=== PATIENT | male | born 1960 | race African-American/Black ===

== ENCOUNTER 2017-06-25 15:27 | Inpatient (IN) | payer OTHER, MEDICAID ==
[~2017-06-25] VITALS: Ht 182.9 cm; Wt 99.3 kg
[2017-06-25 16:05] LABS: BASOPHILS % 0.4 % (0.0-2.0); EOSINOPHILS % 0.4 % (0.0-5.0); HEMATOCRIT. 52.8 % (42.0-52.0); HEMOGLOBIN. 17.5 g/dL (14.0-18.0); LYMPHOCYTES % 10.8 % (20.0-50.0); MEAN CORPUSCULAR HEMOGLOBIN 29.4 pg (28.0-32.0); MEAN CORPUSCULAR VOLUME 88.4 fL (80.0-94.0); MEAN PLATELET VOLUME 10.6 fl (7.4-10.4); NEUTROPHILS % 85.4 % (40.0-76.0); PLATELET 212 x1000/uL (130-400); RED BLOOD CELL COUNT 5.97 mill/uL (4.7-6.1); RED CELL DISTRIBUTION WIDTH 14.3 % (11.6-14.6)
[2017-06-25 16:09] LABS: INR 1.1; PROTHROMBIN TIME 11.3 sec (9.4-11.6)
[2017-06-25 16:24] LABS: CARBON DIOXIDE 29 mEq/L (21-32); CHLORIDE 106 mEq/L (98-107)
[2017-06-25 16:25] LABS: TROPONIN I 0.88 ng/mL (0.00-0.04)
[2017-06-25] MEDS ORDERED: LABETALOL HCL 20MG/4ML CARPUJECT IV PRN (17:00)
[2017-06-25] MEDS ORDERED: NITROGLYCERIN 0.2MG/HR PATCH TOP ONE (17:30)
[2017-06-25] MEDS: LABETALOL 5MG/ML SYR 20 MG/4 ML SYRINGE IV PRN ×2 (18:01→18:52)
[2017-06-25] MEDS ORDERED: LABETALOL 5MG/ML SYR 20 MG/4 ML SYRINGE IV PRN ×2 (18:19→18:45)
[2017-06-25] MEDS ORDERED: ACETAMINOPHEN 325MG TABLET PO PRN (22:00)
[2017-06-25] MEDS ORDERED: CLONIDINE 0.1MG TABLET PO PRN (22:00)
[2017-06-25] MEDS ORDERED: MAGNESIUM/ALUMINUM HYDROXIDE/SIMETHICONE 30ML UDC PO PRN (22:00)
[2017-06-25] MEDS ORDERED: GUAIFENESIN 200MG/10ML SUGAR FREE UDC PO PRN (22:00)
[2017-06-25] MEDS ORDERED: ACETAMINOPHEN 650MG SUPP PR PRN (22:00)
[2017-06-25] MEDS ORDERED: ONDANSETRON HCL 4MG/2ML VIAL IV PRN (22:00)
[2017-06-25] MEDS ORDERED: DOCUSATE SODIUM 100MG CAPSULE PO PRN (22:00)
[2017-06-25] MEDS ORDERED: ACETAMINOPHEN 650MG/20.3ML UDC GT PRN (22:00)
[2017-06-25] MEDS ORDERED: IPRATROPIUM/ALBUTEROL 0.5-3(2.5)MG/3ML NEB INH PRN (22:00)
[2017-06-25] MEDS ORDERED: DIPHENHYDRAMINE 50MG/ML VIAL IV PRN (22:00)
[2017-06-25] MEDS ORDERED: HYDRALAZINE 20MG/ML VIAL IV PRN (22:15)
[2017-06-25] MEDS ORDERED: MORPHINE SULFATE 4 MG/ML CPJ (NOT FOR IM USE) IV PRN (22:30)
[2017-06-25] MEDS ORDERED: CLONIDINE HCL 0.1MG/24HR PATCH TD NR (23:00)
[2017-06-25] MEDS ORDERED: NA PHOS,M-B/NA PHOS,DI-BA ENEMA 118ML PR PRN (23:00)
[2017-06-25 23:09] LABS: CLARITY URINE CLEAR (CLEAR); COLOR URINE YELLOW (YELLOW); KETONES URINE TRACE (NEGATIVE); LEUKOCYTE ESTERASE URINE NEGATIVE (NEGATIVE); NITRITE URINE NEGATIVE (NEGATIVE); OCCULT BLOOD URINE TRACE (NEGATIVE); PROTEIN URINE 2+ (NEGATIVE); SPECIFIC GRAVITY URINE 1.029 (1.005-1.030)
[2017-06-25 23:23] LABS: *AMPHETAMINES SCREEN URINE NEGATIVE (NEGATIVE); *BARBITURATES SCREEN URINE NEGATIVE (NEGATIVE); *BENZODIAZEPINES SCREEN URINE NEGATIVE (NEGATIVE); *COCAINE SCREEN URINE PRESUMTIVE POSITIVE (NEGATIVE); CANNABINOID URINE SCREEN PRESUMTIVE POSITIVE (NEGATIVE); METHADONE URINE SCREEN NEGATIVE (NEGATIVE); OPIATES URINE SCREEN NEGATIVE (NEGATIVE); PHENCYCLIDINE URINE SCREEN NEGATIVE (NEGATIVE)
[2017-06-25] MEDS: SODIUM CHLORIDE 0.45% 1,000 ML IV SCH (23:45)
[2017-06-26] MEDS ORDERED: SODIUM CHLORIDE 0.9% INJ 3ML FLUSH IVF SCH (06:00)
[2017-06-26 06:43] VITALS: BP 140/94
[2017-06-26 07:11] LABS: BASOPHILS % 0.2 % (0.0-2.0); HEMATOCRIT. 50.5 % (42.0-52.0); HEMOGLOBIN. 16.5 g/dL (14.0-18.0); LYMPHOCYTES % 9.4 % (20.0-50.0); MEAN CORPUSCULAR HEMOGLOBIN 28.7 pg (28.0-32.0); MEAN PLATELET VOLUME 10.8 fl (7.4-10.4); MONOCYTES % 3.8 % (2.0-8.0); NEUTROPHILS % 86.6 % (40.0-76.0); PLATELET 220 x1000/uL (130-400); RED BLOOD CELL COUNT 5.74 mill/uL (4.7-6.1); RED CELL DISTRIBUTION WIDTH 14.2 % (11.6-14.6)
[2017-06-26 07:46] VITALS: BP 101/68
[2017-06-26 08:17] LABS: CARBON DIOXIDE 23 mEq/L (21-32); CHLORIDE 108 mEq/L (98-107); HDL CHOLESTEROL 58 mg/dL (40-59); LDL CHOLESTEROL 105 mg/dL (5-100)
[2017-06-26] MEDS: LABETALOL 5MG/ML SYR 20 MG/4 ML SYRINGE IV SCH ×2 (09:00→21:00)
[2017-06-26] MEDS ORDERED: ENOXAPARIN 40MG/0.4ML SYR SUBCUT SCH (09:00)
[2017-06-26] MEDS ORDERED: ASPIRIN 81MG TABLET PO NR (10:51)
[2017-06-26 16:40] VITALS: BP 129/83
[2017-06-26] MEDS: SODIUM CHLORIDE 0.45% 1,000 ML IV SCH (17:07)
[2017-06-26 20:00] VITALS: BP 118/78
[2017-06-26] MEDS: ENOXAPARIN 30MG/0.3ML SYR SUBCUT SCH (21:46)
[2017-06-27] VITALS: BP 116/73
[2017-06-27] MEDS: IPRATROPIUM/ALBUTEROL 0.5-3(2.5)MG/3ML NEB INH SCH ×3 (00:16→14:37)
[2017-06-27 04:00] VITALS: BP 138/89
[2017-06-27] MEDS: SODIUM CHLORIDE 0.45% 1,000 ML IV SCH (07:05)
[2017-06-27 07:59] VITALS: BP 126/85
[2017-06-27] MEDS: LABETALOL 5MG/ML SYR 20 MG/4 ML SYRINGE IV SCH (09:00)
[2017-06-27] MEDS: ENOXAPARIN 30MG/0.3ML SYR SUBCUT SCH (09:03)
[2017-06-27] MEDS ORDERED: ASPI-986 PO (11:26)
[2017-06-27] MEDS ORDERED: BENA40TA66 PO (11:26)
[2017-06-27] MEDS ORDERED: COR6 PO (11:26)
[2017-06-27] MEDS ORDERED: BENAZEPRIL 20MG TABLET PO SCH (11:30)
[2017-06-27] MEDS ORDERED: ASPIRIN 81MG TABLET PO NR (11:30)
[2017-06-27] MEDS ORDERED: ATOR20TA PO (11:45)
[2017-06-27 12:20] VITALS: BP 124/83
[2017-06-27 12:55] VITALS: BP 126/83
[2017-06-27] MEDS ORDERED: MAGNESIUM CITRATE 300ML SOLUTION PO NR (15:00)
[2017-06-27] MEDS ORDERED: ATORVASTATIN CALCIUM 20MG TABLET PO SCH (21:00)
[2017-06-28] MEDS ORDERED: ASPIRIN 81MG TABLET PO SCH (09:00)
== END 2017-06-27 18:10 | disposition home or self-care (01) | DRG 254 ==
LOC: ER 15:29 → 6WST 17:33 → ENRESERV 06-26 05:07
PROVIDERS: ADMIT Family Medicine; ATTEND Family Medicine
DX: K43.9 Ventral hernia without obstruction or gangrene (principal); I11.0 Hypertensive heart disease with heart failure; I50.9 Heart failure, unspecified; I24.9 Acute ischemic heart disease, unspecified; J98.11 Atelectasis; E78.5 Hyperlipidemia, unspecified; F17.210 Nicotine dependence, cigarettes, uncomplicated; I25.10 Atherosclerotic heart disease of native coronary artery without angina pectoris; K42.9 Umbilical hernia without obstruction or gangrene; Z60.2 Problems related to living alone; J44.9 Chronic obstructive pulmonary disease, unspecified; Z95.1 Presence of aortocoronary bypass graft; Z91.14 Patient's other noncompliance with medication regimen; I25.2 Old myocardial infarction
CPT/HCPCS: 36415; 71045; 74018; 74176; 80048; 80053; 80061; 80305; 81001; 83880; 84484; 85025; 85610; 93005; 93306; 94640; 96374; 99291; J1650; J2270; J2405; J3490; J7620

== ENCOUNTER 2018-02-12 09:07 | Inpatient (IN) | payer MEDICAID, OTHER ==
[~2018-02-12] VITALS: Ht 180.3 cm; Wt 94.8 kg
[~2018-02-12 09:07] MED LIST: ASPI-986 PO; ATOR20TA PO; BENA40TA66 PO
[2018-02-12] MEDS ORDERED: ONDANSETRON HCL 4MG/2ML VIAL IV STA (09:35)
[2018-02-12] MEDS ORDERED: MORPHINE SULFATE 4 MG/ML CPJ (NOT FOR IM USE) IV STA (09:35)
[2018-02-12] MEDS ORDERED: ASPIRIN 81MG TABLET PO ONE (09:45)
[2018-02-12] MEDS ORDERED: CLONIDINE 0.2MG TABLET PO ONE (09:45)
[2018-02-12 10:05] LABS: BASOPHILS % 0.6 % (0.0-2.0); EOSINOPHILS % 0.9 % (0.0-5.0); HEMOGLOBIN. 13.9 g/dL (14.0-18.0); LYMPHOCYTES % 15.2 % (20.0-50.0); MEAN CORPUSCULAR HEMOGLOBIN 27.4 pg (28.0-32.0); MEAN CORPUSCULAR VOLUME 82.9 fL (80.0-94.0); MEAN PLATELET VOLUME 9.9 fl (7.4-10.4); MONOCYTES % 3.4 % (2.0-8.0); NEUTROPHILS % 79.9 % (40.0-76.0); PLATELET 208 x1000/uL (130-400); RED BLOOD CELL COUNT 5.07 mill/uL (4.7-6.1); RED CELL DISTRIBUTION WIDTH 17.3 % (11.6-14.6)
[2018-02-12 10:12] LABS: CHLORIDE 112 mEq/L (98-107)
[2018-02-12 10:20] LABS: D-DIMER 2.25 mg/L FEU (<0.50); INR 1.1; PARTIAL THROMBOPLASTIN TIME 26.1 sec (23.4-31.0); PROTHROMBIN TIME 11.4 sec (9.1-11.1)
[2018-02-12] MEDS ORDERED: IOHEXOL-350 100 ML BOTTLE ONE (13:04)
[2018-02-12] MEDS ORDERED: HYDROMORPHONE HCL/PF 2MG/ML CPJ IV PRN (16:00)
[2018-02-12] MEDS ORDERED: NA PHOS,M-B/NA PHOS,DI-BA ENEMA 118ML PR PRN (16:00)
[2018-02-12] MEDS ORDERED: ONDANSETRON HCL 4MG/2ML VIAL IV PRN (16:00)
[2018-02-12] MEDS ORDERED: LORAZEPAM 2MG/ML CPJ IV PRN (16:00)
[2018-02-12] MEDS ORDERED: DOCUSATE SODIUM 100MG CAPSULE PO PRN (16:00)
[2018-02-12] MEDS ORDERED: DIPHENHYDRAMINE 50MG/ML VIAL IV PRN (16:00)
[2018-02-12] MEDS ORDERED: MAGNESIUM/ALUMINUM HYDROXIDE/SIMETHICONE 30ML UDC PO PRN (16:00)
[2018-02-12] MEDS ORDERED: HYDROCODONE/ACETAMINOPHEN 10/325MG TABLET PO PRN (16:00)
[2018-02-12 18:00] VITALS: BP 153/103
[2018-02-12] MEDS: ENOXAPARIN 30MG/0.3ML SYR SUBCUT SCH (18:05)
[2018-02-12 19:27] LABS: CHLORIDE 109 mEq/L (98-107)
[2018-02-12 20:00] VITALS: BP 146/107
[2018-02-12 20:47] VITALS: BP 146/107
[2018-02-13] VITALS: BP 146/116
[2018-02-13 00:23] LABS: *AMPHETAMINES SCREEN URINE NEGATIVE (NEGATIVE); *BARBITURATES SCREEN URINE NEGATIVE (NEGATIVE); CANNABINOID URINE SCREEN PRESUMTIVE POSITIVE (NEGATIVE); PHENCYCLIDINE URINE SCREEN NEGATIVE (NEGATIVE)
[2018-02-13 00:26] LABS: *BENZODIAZEPINES SCREEN URINE NEGATIVE (NEGATIVE); *COCAINE SCREEN URINE PRESUMTIVE POSITIVE (NEGATIVE); METHADONE URINE SCREEN NEGATIVE (NEGATIVE); OPIATES URINE SCREEN PRESUMTIVE POSITIVE (NEGATIVE)
[2018-02-13] MEDS: CLONIDINE 0.1MG TABLET PO PRN ×2 (03:46→11:20)
[2018-02-13 04:00] VITALS: BP 175/127
[2018-02-13] MEDS: GUAIFENESIN 200MG/10ML SUGAR FREE UDC PO PRN ×2 (04:00→11:06)
[2018-02-13] MEDS: ACETAMINOPHEN 325MG TABLET PO PRN (04:01)
[2018-02-13] MEDS: IPRATROPIUM/ALBUTEROL 0.5-3(2.5)MG/3ML NEB INH PRN ×2 (04:44→10:39)
[2018-02-13 07:47] LABS: BASOPHILS % 0.5 % (0.0-2.0); EOSINOPHILS % 1.8 % (0.0-5.0); HEMATOCRIT. 38.6 % (42.0-52.0); HEMOGLOBIN. 12.6 g/dL (14.0-18.0); LYMPHOCYTES % 23.8 % (20.0-50.0); MEAN CORPUSCULAR HEMOGLOBIN 27.1 pg (28.0-32.0); MEAN CORPUSCULAR VOLUME 83.5 fL (80.0-94.0); MEAN PLATELET VOLUME 9.8 fl (7.4-10.4); MONOCYTES % 4.1 % (2.0-8.0); NEUTROPHILS % 69.8 % (40.0-76.0); PLATELET 187 x1000/uL (130-400); RED BLOOD CELL COUNT 4.63 mill/uL (4.7-6.1)
[2018-02-13 08:00] VITALS: BP 146/99
[2018-02-13 08:01] LABS: CHLORIDE 109 mEq/L (98-107)
[2018-02-13 08:19] LABS: LDL CHOLESTEROL 66 mg/dL (5-100)
[2018-02-13 08:20] LABS: HDL CHOLESTEROL 47 mg/dL (40-59)
[2018-02-13] MEDS: ASPIRIN 81MG EC TABLET PO SCH (08:22)
[2018-02-13] MEDS: ENOXAPARIN 30MG/0.3ML SYR SUBCUT SCH ×2 (08:22→20:32)
[2018-02-13 12:00] VITALS: BP 157/117
[2018-02-13] MEDS ORDERED: CLONIDINE 0.2MG TABLET PO NR (13:15)
[2018-02-13] MEDS: FUROSEMIDE 40MG/4ML VIAL IVP SCH ×3 (16:30→20:32)
[2018-02-13] MEDS ORDERED: BUDESONIDE 0.5MG/2ML NEB HHN SCH (18:00)
[2018-02-13] MEDS ORDERED: AMLODIPINE 10MG TABLET PO NR (19:00)
[2018-02-13] MEDS ORDERED: HYDRALAZINE HCL 50MG TABLET PO NR (19:00)
[2018-02-13 20:00] VITALS: BP 158/118
[2018-02-13] MEDS: IPRATROPIUM/ALBUTEROL 0.5-3(2.5)MG/3ML NEB HHN SCH (20:21)
[2018-02-13 21:00] VITALS: BP 180/124
[2018-02-14] MEDS: IPRATROPIUM/ALBUTEROL 0.5-3(2.5)MG/3ML NEB HHN SCH ×3 (00:58→14:22)
[2018-02-14 05:00] VITALS: BP 161/123
[2018-02-14] MEDS: CLONIDINE 0.1MG TABLET PO PRN (06:00)
[2018-02-14] MEDS ORDERED: CARVEDILOL 25MG TABLET PO NR (07:00)
[2018-02-14] MEDS ORDERED: HYDRALAZINE HCL 25MG TABLET PO NR (07:00)
[2018-02-14] MEDS ORDERED: AMLODIPINE 10MG TABLET PO NR (07:00)
[2018-02-14] MEDS ORDERED: CLONIDINE 0.3MG TABLET PO PRN (07:15)
[2018-02-14 07:18] LABS: CHLORIDE 107 mEq/L (98-107)
[2018-02-14 07:32] LABS: BASOPHILS % 0.6 % (0.0-2.0); HEMATOCRIT. 43.9 % (42.0-52.0); HEMOGLOBIN. 14.3 g/dL (14.0-18.0); LYMPHOCYTES % 19.4 % (20.0-50.0); MEAN CORPUSCULAR VOLUME 83.1 fL (80.0-94.0); MONOCYTES % 4.2 % (2.0-8.0); NEUTROPHILS % 74.8 % (40.0-76.0); PLATELET 216 x1000/uL (130-400); RED BLOOD CELL COUNT 5.28 mill/uL (4.7-6.1)
[2018-02-14 08:00] VITALS: BP 170/112
[2018-02-14] MEDS: ENOXAPARIN 30MG/0.3ML SYR SUBCUT SCH (09:00)
[2018-02-14] MEDS: FUROSEMIDE 40MG/4ML VIAL IVP SCH (09:00)
[2018-02-14 10:00] VITALS: BP 110/67
[2018-02-14] MEDS: ASPIRIN 81MG EC TABLET PO SCH (10:53)
[2018-02-14] MEDS: ACETAMINOPHEN 325MG TABLET PO PRN (11:00)
[2018-02-14 12:00] VITALS: BP 110/75
[2018-02-14 14:00] VITALS: BP 118/76
[2018-02-15] MEDS ORDERED: CARVEDILOL 25MG TABLET PO SCH (09:00)
[2018-02-15] MEDS ORDERED: AMLODIPINE 10MG TABLET PO SCH (09:00)
[2018-02-15] MEDS ORDERED: HYDRALAZINE HCL 50MG TABLET PO SCH (09:00)
== END 2018-02-14 15:05 | disposition home or self-care (01) | DRG 816 ==
LOC: ER 09:07 → 5WST 12:25 → EDBEDREQTM 12:28 → EDBEDREQ 12:28 → ENRESERV 16:01
PROVIDERS: ADMIT Internal Medicine; ATTEND Internal Medicine
DX: T40.5X1A Poisoning by cocaine, accidental (unintentional), initial encounter (principal); J96.00 Acute respiratory failure, unspecified whether with hypoxia or hypercapnia; I50.23 Acute on chronic systolic (congestive) heart failure; J18.9 Pneumonia, unspecified organism; I11.0 Hypertensive heart disease with heart failure; E78.5 Hyperlipidemia, unspecified; K21.9 Gastro-esophageal reflux disease without esophagitis; F17.210 Nicotine dependence, cigarettes, uncomplicated; I25.10 Atherosclerotic heart disease of native coronary artery without angina pectoris; Z86.73 Personal history of transient ischemic attack (TIA), and cerebral infarction without residual deficits; Z95.1 Presence of aortocoronary bypass graft; Z95.5 Presence of coronary angioplasty implant and graft; Z91.14 Patient's other noncompliance with medication regimen; I25.2 Old myocardial infarction; Z79.899 Other long term (current) drug therapy; Z79.82 Long term (current) use of aspirin; Z88.8 Allergy status to other drugs, medicaments and biological substances; Y92.89 Other specified places as the place of occurrence of the external cause
CPT/HCPCS: 36415; 71045; 71275; 80048; 80053; 80061; 80305; 83880; 84484; 85025; 85379; 85610; 85730; 93005; 94640; 96374; 96375; 99285; J1170; J1650; J1940; J2060; J2270; J2405; J7620; J7626; Q9967

== ENCOUNTER 2018-06-17 08:17 | Inpatient (IN) | payer MEDICAID, OTHER ==
[~2018-06-17] VITALS: Ht 180.3 cm; Wt 86.0 kg
[2018-06-17 08:59] LABS: BASOPHILS % 0.5 % (0.0-2.0); HEMATOCRIT. 42.4 % (42.0-52.0); HEMOGLOBIN. 13.4 g/dL (14.0-18.0); LYMPHOCYTES % 12.3 % (20.0-50.0); MEAN CORPUSCULAR HEMOGLOBIN 26.8 pg (28.0-32.0); MEAN CORPUSCULAR VOLUME 84.5 fL (80.0-94.0); MEAN PLATELET VOLUME 9.2 fl (7.4-10.4); MONOCYTES % 6.5 % (2.0-8.0); NEUTROPHILS % 80.7 % (40.0-76.0); PLATELET 195 x1000/uL (130-400); RED BLOOD CELL COUNT 5.02 mill/uL (4.7-6.1); RED CELL DISTRIBUTION WIDTH 17.7 % (11.6-14.6)
[2018-06-17 09:38] LABS: CHLORIDE 105 mEq/L (98-107)
[2018-06-17] MEDS ORDERED: NA PHOS,M-B/NA PHOS,DI-BA ENEMA 118ML PR PRN (12:45)
[2018-06-17] MEDS ORDERED: DIPHENHYDRAMINE 50MG/ML VIAL IV PRN (12:45)
[2018-06-17] MEDS ORDERED: ACETAMINOPHEN 325MG TABLET PO PRN (12:45)
[2018-06-17] MEDS ORDERED: BENZONATATE 100MG CAPSULE PO ONE (12:45)
[2018-06-17] MEDS ORDERED: MAGNESIUM/ALUMINUM HYDROXIDE/SIMETHICONE 30ML UDC PO PRN (12:45)
[2018-06-17] MEDS ORDERED: ONDANSETRON HCL 4MG/2ML INJ IV PRN (12:45)
[2018-06-17] MEDS ORDERED: DOCUSATE SODIUM 100MG CAPSULE PO PRN (12:45)
[2018-06-17] MEDS ORDERED: LORAZEPAM 2MG/ML CPJ IV PRN (12:45)
[2018-06-17] MEDS ORDERED: HYDROCODONE/ACETAMINOPHEN 5/325MG TABLET PO PRN (12:45)
[2018-06-17] MEDS ORDERED: GUAIFENESIN 200MG/10ML SUGAR FREE UDC PO PRN (12:45)
[2018-06-17] MEDS ORDERED: CLONIDINE 0.1MG TABLET PO PRN (12:45)
[2018-06-17 13:45] VITALS: BP 159/100
[2018-06-17] MEDS ORDERED: MORPHINE SULFATE 10 MG/ML CPJ IV PRN (13:45)
[2018-06-17 13:50] VITALS: BP 159/100
[2018-06-17] MEDS ORDERED: ALBUL MT (14:10)
[2018-06-17] MEDS ORDERED: CARV6.2548 MT (14:10)
[2018-06-17] MEDS ORDERED: P50 MT (14:10)
[2018-06-17 16:00] VITALS: BP 137/78
[2018-06-17 17:31] LABS: CHLORIDE 101 mEq/L (98-107)
[2018-06-17] MEDS: BENAZEPRIL 10MG TABLET PO SCH (18:27)
[2018-06-17] MEDS: FUROSEMIDE 40MG/4ML VIAL IVP SCH (18:27)
[2018-06-17] MEDS: IPRATROPIUM/ALBUTEROL 0.5-3(2.5)MG/3ML NEB INH PRN (18:27)
[2018-06-17 20:00] VITALS: BP 117/71
[2018-06-17 23:09] LABS: *AMPHETAMINES SCREEN URINE NEGATIVE (NEGATIVE); *BARBITURATES SCREEN URINE NEGATIVE (NEGATIVE); *BENZODIAZEPINES SCREEN URINE NEGATIVE (NEGATIVE); *COCAINE SCREEN URINE NEGATIVE (NEGATIVE); METHADONE URINE SCREEN NEGATIVE (NEGATIVE); OPIATES URINE SCREEN NEGATIVE (NEGATIVE)
[2018-06-17 23:10] LABS: CANNABINOID URINE SCREEN NEGATIVE (NEGATIVE); PHENCYCLIDINE URINE SCREEN NEGATIVE (NEGATIVE)
[2018-06-18] VITALS: BP 140/106
[2018-06-18 04:00] VITALS: BP 136/85
[2018-06-18 07:05] LABS: BASOPHILS % 0.3 % (0.0-2.0); EOSINOPHILS % 0.1 % (0.0-5.0); HEMATOCRIT. 44.9 % (42.0-52.0); HEMOGLOBIN. 14.3 g/dL (14.0-18.0); MEAN CORPUSCULAR HEMOGLOBIN 26.6 pg (28.0-32.0); MEAN CORPUSCULAR VOLUME 83.5 fL (80.0-94.0); MEAN PLATELET VOLUME 9.3 fl (7.4-10.4); MONOCYTES % 8.5 % (2.0-8.0); NEUTROPHILS % 72.1 % (40.0-76.0); PLATELET 214 x1000/uL (130-400); RED BLOOD CELL COUNT 5.38 mill/uL (4.7-6.1); RED CELL DISTRIBUTION WIDTH 18.1 % (11.6-14.6)
[2018-06-18 07:16] LABS: CHLORIDE 104 mEq/L (98-107)
[2018-06-18 07:38] LABS: LDL CHOLESTEROL 59 mg/dL (5-100)
[2018-06-18 07:40] LABS: HDL CHOLESTEROL 33 mg/dL (40-59); T4 FREE 1.25 ng/dL (0.76-1.46)
[2018-06-18] MEDS ORDERED: ASPIRIN 81MG EC TABLET PO SCH (09:00)
[2018-06-18] MEDS: BENAZEPRIL 10MG TABLET PO SCH (10:49)
[2018-06-18] MEDS: FUROSEMIDE 40MG/4ML VIAL IVP SCH (10:50)
[2018-06-18 12:00] VITALS: BP 141/90
[2018-06-18] MEDS: IPRATROPIUM/ALBUTEROL 0.5-3(2.5)MG/3ML NEB INH PRN (13:27)
[2018-06-18 15:41] VITALS: BP 140/84
== END 2018-06-18 16:40 | disposition home or self-care (01) | DRG 194 ==
LOC: ER 08:19 → 6WST 12:12 → ENRESERV 12:26
PROVIDERS: ADMIT Internal Medicine; ATTEND Internal Medicine
DX: I11.0 Hypertensive heart disease with heart failure (principal); E43 Unspecified severe protein-calorie malnutrition; Z95.1 Presence of aortocoronary bypass graft; E78.00 Pure hypercholesterolemia, unspecified; I50.23 Acute on chronic systolic (congestive) heart failure; F14.10 Cocaine abuse, uncomplicated; G89.29 Other chronic pain; M54.5 Low back pain; F17.200 Nicotine dependence, unspecified, uncomplicated; R07.89 Other chest pain; I25.10 Atherosclerotic heart disease of native coronary artery without angina pectoris; I25.2 Old myocardial infarction; I25.5 Ischemic cardiomyopathy; J44.9 Chronic obstructive pulmonary disease, unspecified; Z82.49 Family history of ischemic heart disease and other diseases of the circulatory system; Z86.73 Personal history of transient ischemic attack (TIA), and cerebral infarction without residual deficits; Z95.5 Presence of coronary angioplasty implant and graft; Z68.26 Body mass index [BMI] 26.0-26.9, adult
CPT/HCPCS: 36415; 71045; 74018; 80048; 80061; 80305; 83735; 83880; 84439; 84443; 84484; 85379; 93005; 94640; 96374; 99285; J1200; J1940; J7620

== ENCOUNTER 2018-08-30 16:41 | Inpatient (IN) | payer OTHER ==
[~2018-08-30] VITALS: Ht 180.3 cm; Wt 98.4 kg
[~2018-08-30 16:41] MED LIST changes: +ALBUL MT; +CARV6.2548 MT; +P50 MT
[2018-08-30] MEDS ORDERED: KETOROLAC 30MG/ML VIAL IV STA (17:51)
[2018-08-30 18:11] LABS: BASOPHILS % 0.2 % (0.0-2.0); HEMATOCRIT. 42.8 % (42.0-52.0); HEMOGLOBIN. 13.4 g/dL (14.0-18.0); LYMPHOCYTES % 8.2 % (20.0-50.0); MEAN CORPUSCULAR VOLUME 83.1 fL (80.0-94.0); MEAN PLATELET VOLUME 9.9 fl (7.4-10.4); MONOCYTES % 1.7 % (2.0-8.0); NEUTROPHILS % 89.9 % (40.0-76.0); PLATELET 212 x1000/uL (130-400); RED BLOOD CELL COUNT 5.15 mill/uL (4.7-6.1); RED CELL DISTRIBUTION WIDTH 20.1 % (11.6-14.6)
[2018-08-30 18:15] LABS: CHLORIDE 110 mEq/L (98-107)
[2018-08-30] MEDS ORDERED: HYDRALAZINE 20MG/ML VIAL IV ONE (21:30)
[2018-08-31] VITALS (8 sets, daily range): BP systolic 149–158; BP diastolic 96–117
[2018-08-31] MEDS ORDERED: ONDANSETRON HCL 4MG/2ML INJ IV PRN
[2018-08-31] MEDS ORDERED: MAGNESIUM/ALUMINUM HYDROXIDE/SIMETHICONE 30ML UDC PO PRN
[2018-08-31] MEDS ORDERED: ENOXAPARIN 40MG/0.4ML SYR SUBCUT SCH
[2018-08-31] MEDS ORDERED: IPRATROPIUM/ALBUTEROL 0.5-3(2.5)MG/3ML NEB INH PRN
[2018-08-31 06:45] LABS: BASOPHILS % 0.4 % (0.0-2.0); EOSINOPHILS % 0.4 % (0.0-5.0); HEMATOCRIT. 39.9 % (42.0-52.0); HEMOGLOBIN. 12.7 g/dL (14.0-18.0); LYMPHOCYTES % 17.2 % (20.0-50.0); MEAN CORPUSCULAR HEMOGLOBIN 26.4 pg (28.0-32.0); MEAN CORPUSCULAR VOLUME 82.7 fL (80.0-94.0); MEAN PLATELET VOLUME 9.8 fl (7.4-10.4); MONOCYTES % 8.3 % (2.0-8.0); NEUTROPHILS % 73.7 % (40.0-76.0); PLATELET 202 x1000/uL (130-400); RED BLOOD CELL COUNT 4.83 mill/uL (4.7-6.1); RED CELL DISTRIBUTION WIDTH 19.7 % (11.6-14.6)
[2018-08-31] MEDS: ENOXAPARIN 30MG/0.3ML SYR SUBCUT SCH ×2 (08:43→22:41)
[2018-08-31] MEDS: ASPIRIN 81MG EC TABLET PO SCH (08:44)
[2018-08-31 09:14] LABS: CREATINE KINASE MB FRACTION 1.9 ng/mL (0.5-3.6)
[2018-08-31] MEDS ORDERED: DEXTROSE 50% WATER 50ML SYRINGE IV PRN (09:30)
[2018-08-31] MEDS ORDERED: BLOOD SUGAR DIAGNOSTIC STRIP TEST SCH (11:45)
[2018-08-31] MEDS: DOCUSATE SODIUM 100MG CAPSULE PO PRN (11:59)
[2018-08-31 12:04] LABS: CLARITY URINE CLEAR (CLEAR); COLOR URINE YELLOW (YELLOW); KETONES URINE TRACE (NEGATIVE); LEUKOCYTE ESTERASE URINE NEGATIVE (NEGATIVE); NITRITE URINE NEGATIVE (NEGATIVE); OCCULT BLOOD URINE NEGATIVE (NEGATIVE); PROTEIN URINE 1+ (NEGATIVE); SPECIFIC GRAVITY URINE 1.026 (1.005-1.030); UROBILINOGEN URINE 0.2 E.U./dL (0.2-1.0)
[2018-08-31] MEDS ORDERED: INSULIN LISPRO 100 UNITS/ML SUBCUT SCH (12:15)
[2018-08-31 12:44] LABS: *AMPHETAMINES SCREEN URINE NEGATIVE (NEGATIVE); *BARBITURATES SCREEN URINE NEGATIVE (NEGATIVE); *BENZODIAZEPINES SCREEN URINE NEGATIVE (NEGATIVE); OPIATES URINE SCREEN NEGATIVE (NEGATIVE)
[2018-08-31 12:45] LABS: CANNABINOID URINE SCREEN PRESUMTIVE POSITIVE (NEGATIVE)
[2018-08-31 12:52] LABS: *COCAINE SCREEN URINE PRESUMTIVE POSITIVE (NEGATIVE)
[2018-08-31 12:53] LABS: PHENCYCLIDINE URINE SCREEN NEGATIVE (NEGATIVE)
[2018-08-31 12:54] LABS: METHADONE URINE SCREEN NEGATIVE (NEGATIVE)
[2018-08-31 23:41] LABS: CREATINE KINASE MB FRACTION 2.3 ng/mL (0.5-3.6)
[2018-09-01] MEDS: ACETAMINOPHEN 325MG TABLET PO PRN (01:21)
[2018-09-01 07:09] LABS: BASOPHILS % 0.7 % (0.0-2.0); EOSINOPHILS % 0.8 % (0.0-5.0); HEMATOCRIT. 40.3 % (42.0-52.0); HEMOGLOBIN. 12.8 g/dL (14.0-18.0); LYMPHOCYTES % 23.6 % (20.0-50.0); MEAN CORPUSCULAR HEMOGLOBIN 26.5 pg (28.0-32.0); MEAN CORPUSCULAR VOLUME 83.5 fL (80.0-94.0); MEAN PLATELET VOLUME 9.6 fl (7.4-10.4); MONOCYTES % 6.7 % (2.0-8.0); NEUTROPHILS % 68.2 % (40.0-76.0); PLATELET 217 x1000/uL (130-400); RED BLOOD CELL COUNT 4.82 mill/uL (4.7-6.1); RED CELL DISTRIBUTION WIDTH 19.5 % (11.6-14.6)
[2018-09-01 07:24] LABS: CHLORIDE 113 mEq/L (98-107)
[2018-09-01 08:00] VITALS: BP_SYST 148; BP_SYST 151; BP_SYST 163; BP_DIAS 110; BP_DIAS 115; BP_DIAS 126
[2018-09-01] MEDS: ASPIRIN 81MG EC TABLET PO SCH (09:07)
[2018-09-01] MEDS: CLONIDINE 0.1MG TABLET PO PRN ×2 (09:08→17:04)
[2018-09-01] MEDS: ENOXAPARIN 30MG/0.3ML SYR SUBCUT SCH ×2 (09:08→21:50)
[2018-09-01] MEDS: HYDROCODONE/ACETAMINOPHEN 5/325MG TABLET PO PRN (09:10)
[2018-09-01] MEDS ORDERED: FUROSEMIDE 40MG/4ML VIAL IVP SCH (11:15)
[2018-09-01 12:00] VITALS: BP 144/112
[2018-09-01 12:15] LABS: CHLORIDE 113 mEq/L (98-107)
[2018-09-01] MEDS ORDERED: LOSARTAN POTASSIUM 25 MG TABLET PO SCH (13:15)
[2018-09-01 16:00] VITALS: BP 153/122
[2018-09-01] MEDS: LOSARTAN POTASSIUM 50 MG TABLET PO SCH (17:04)
[2018-09-01] MEDS: FUROSEMIDE 40MG/4ML VIAL IVP SCH (17:05)
[2018-09-01 20:00] VITALS: BP_SYST 147; BP_DIAS 106; BP_DIAS 108
[2018-09-01] MEDS ORDERED: CARVEDILOL 6.25 MG TABLET PO SCH (21:00)
[2018-09-01] MEDS: DOCUSATE SODIUM 100MG CAPSULE PO PRN (21:45)
[2018-09-01] MEDS: CARVEDILOL 12.5MG TABLET PO SCH (21:50)
[2018-09-02] VITALS (7 sets, daily range): BP systolic 111–149; BP diastolic 76–104
[2018-09-02 07:34] LABS: BASOPHILS % 0.6 % (0.0-2.0); CHLORIDE 111 mEq/L (98-107); EOSINOPHILS % 1.5 % (0.0-5.0); HEMATOCRIT. 39.7 % (42.0-52.0); HEMOGLOBIN. 12.6 g/dL (14.0-18.0); LYMPHOCYTES % 18.5 % (20.0-50.0); MEAN CORPUSCULAR HEMOGLOBIN 26.6 pg (28.0-32.0); MEAN CORPUSCULAR VOLUME 83.6 fL (80.0-94.0); MEAN PLATELET VOLUME 9.7 fl (7.4-10.4); MONOCYTES % 7.1 % (2.0-8.0); NEUTROPHILS % 72.3 % (40.0-76.0); PLATELET 218 x1000/uL (130-400); RED BLOOD CELL COUNT 4.75 mill/uL (4.7-6.1); RED CELL DISTRIBUTION WIDTH 20.4 % (11.6-14.6)
[2018-09-02] MEDS: ENOXAPARIN 30MG/0.3ML SYR SUBCUT SCH ×2 (09:16→21:16)
[2018-09-02] MEDS: CARVEDILOL 12.5MG TABLET PO SCH (09:16)
[2018-09-02] MEDS: ASPIRIN 81MG EC TABLET PO SCH (09:16)
[2018-09-02] MEDS: FUROSEMIDE 40MG/4ML VIAL IVP SCH ×2 (09:16→17:09)
[2018-09-02] MEDS: LOSARTAN POTASSIUM 50 MG TABLET PO SCH (09:16)
[2018-09-02] MEDS ORDERED: NA PHOS,M-B/NA PHOS,DI-BA ENEMA 118ML PR NR (13:15)
[2018-09-02] MEDS: DOCUSATE SODIUM 250MG CAPSULE PO SCH (17:10)
[2018-09-02] MEDS: CARVEDILOL 25MG TABLET PO SCH (21:15)
[2018-09-03] VITALS: BP 123/71
[2018-09-03 04:00] VITALS: BP 108/81
[2018-09-03 08:00] VITALS: BP_SYST 114; BP_SYST 121; BP_SYST 151; BP_DIAS 85; BP_DIAS 86; BP_DIAS 92
[2018-09-03] MEDS: ASPIRIN 81MG EC TABLET PO SCH (08:46)
[2018-09-03] MEDS: ENOXAPARIN 30MG/0.3ML SYR SUBCUT SCH ×2 (08:46→20:55)
[2018-09-03] MEDS: FUROSEMIDE 40MG/4ML VIAL IVP SCH ×2 (08:46→17:00)
[2018-09-03] MEDS: LOSARTAN POTASSIUM 50 MG TABLET PO SCH (08:46)
[2018-09-03] MEDS: CARVEDILOL 25MG TABLET PO SCH ×2 (08:46→20:56)
[2018-09-03] MEDS: DOCUSATE SODIUM 250MG CAPSULE PO SCH ×2 (08:46→17:58)
[2018-09-03 12:00] VITALS: BP 110/62
[2018-09-03] MEDS: HYDROCODONE/ACETAMINOPHEN 5/325MG TABLET PO PRN (12:23)
[2018-09-03 16:00] VITALS: BP 118/74
[2018-09-03 20:00] VITALS: BP 114/87
[2018-09-04] VITALS: BP 125/91
[2018-09-04] MEDS: LOSARTAN POTASSIUM 50 MG TABLET PO SCH (09:54)
[2018-09-04] MEDS: DOCUSATE SODIUM 250MG CAPSULE PO SCH ×2 (09:54→17:00)
[2018-09-04] MEDS: CARVEDILOL 25MG TABLET PO SCH ×2 (09:55→20:01)
[2018-09-04] MEDS: FUROSEMIDE 40MG/4ML VIAL IVP SCH ×2 (09:55→17:00)
[2018-09-04] MEDS: ASPIRIN 81MG EC TABLET PO SCH (09:55)
[2018-09-04] MEDS: ENOXAPARIN 30MG/0.3ML SYR SUBCUT SCH ×2 (09:55→20:00)
[2018-09-04] MEDS: HYDROCODONE/ACETAMINOPHEN 5/325MG TABLET PO PRN (12:25)
[2018-09-04] MEDS: ACETAMINOPHEN 325MG TABLET PO PRN (19:59)
[2018-09-04 20:00] VITALS: BP 119/80
[2018-09-05] VITALS: BP 112/74
[2018-09-05 04:00] VITALS: BP 128/95
[2018-09-05] MEDS: FUROSEMIDE 40MG/4ML VIAL IVP SCH (09:00)
[2018-09-05] MEDS: DOCUSATE SODIUM 250MG CAPSULE PO SCH (09:42)
[2018-09-05] MEDS: CARVEDILOL 25MG TABLET PO SCH (09:42)
[2018-09-05] MEDS: LOSARTAN POTASSIUM 50 MG TABLET PO SCH (09:42)
[2018-09-05] MEDS: ASPIRIN 81MG EC TABLET PO SCH (09:43)
[2018-09-05] MEDS: ENOXAPARIN 30MG/0.3ML SYR SUBCUT SCH (09:43)
[2018-09-05 12:00] VITALS: BP 136/111
[2018-09-05] MEDS: ACETAMINOPHEN 325MG TABLET PO PRN (12:26)
[2018-09-05 14:42] VITALS: BP 136/111
== END 2018-09-05 16:35 | disposition home or self-care (01) | DRG 862 ==
LOC: ER 16:41 → 5WST 20:23 → EDBEDREQTM 20:25 → EDBEDREQ 20:25 → ENRESERV 23:38
PROVIDERS: ADMIT Internal Medicine; ATTEND Internal Medicine
DX: T85.848A Pain due to other internal prosthetic devices, implants and grafts, initial encounter (principal); I50.21 Acute systolic (congestive) heart failure; E87.8 Other disorders of electrolyte and fluid balance, not elsewhere classified; I27.20 Pulmonary hypertension, unspecified; E66.01 Morbid (severe) obesity due to excess calories; I42.9 Cardiomyopathy, unspecified; I11.0 Hypertensive heart disease with heart failure; R16.0 Hepatomegaly, not elsewhere classified; R17 Unspecified jaundice; D64.9 Anemia, unspecified; E78.5 Hyperlipidemia, unspecified; F12.90 Cannabis use, unspecified, uncomplicated; F14.10 Cocaine abuse, uncomplicated; I25.118 Atherosclerotic heart disease of native coronary artery with other forms of angina pectoris; J44.9 Chronic obstructive pulmonary disease, unspecified; G89.29 Other chronic pain; K57.30 Diverticulosis of large intestine without perforation or abscess without bleeding; Y73.8 Miscellaneous gastroenterology and urology devices associated with adverse incidents, not elsewhere classified; K40.90 Unilateral inguinal hernia, without obstruction or gangrene, not specified as recurrent; Z59.0 Homelessness; Z86.73 Personal history of transient ischemic attack (TIA), and cerebral infarction without residual deficits; I25.2 Old myocardial infarction; Z91.19 Patient's noncompliance with other medical treatment and regimen; Z95.1 Presence of aortocoronary bypass graft; Z95.5 Presence of coronary angioplasty implant and graft; Z88.8 Allergy status to other drugs, medicaments and biological substances; Z88.0 Allergy status to penicillin; Z68.30 Body mass index [BMI] 30.0-30.9, adult; Y92.89 Other specified places as the place of occurrence of the external cause
CPT/HCPCS: 36415; 71045; 74176; 76700; 80048; 80061; 80305; 82550; 82553; 82962; 83036; 83735; 83880; 84443; 84484; 93005; 93306; 93880; 94640; 96374; 96375; 99285; J0360; J1650; J1885; J1940; J7620

== ENCOUNTER 2019-08-17 09:23 | Emergency (ER) | payer OTHER ==
[~2019-08-17] VITALS: Ht 175.3 cm; Wt 90.0 kg
[~2019-08-17 09:23] MED LIST changes: -BENA40TA66 PO; -P50 MT
[2019-08-17 10:00] LABS: BASOPHILS % 0.8 % (0.0-2.0); EOSINOPHILS % 0.9 % (0.0-5.0); HEMATOCRIT. 49.4 % (42.0-52.0); HEMOGLOBIN. 16.7 g/dL (14.0-18.0); LYMPHOCYTES % 14.6 % (20.0-50.0); MEAN CORPUSCULAR VOLUME 91.9 fL (80.0-94.0); MEAN PLATELET VOLUME 9.8 fl (7.4-10.4); MONOCYTES % 5.3 % (2.0-8.0); NEUTROPHILS % 78.4 % (40.0-76.0); PLATELET 153 x1000/uL (130-400); RED BLOOD CELL COUNT 5.37 mill/uL (4.7-6.1); RED CELL DISTRIBUTION WIDTH 14.1 % (11.6-14.6)
[2019-08-17] MEDS ORDERED: FUROSEMIDE 40MG/4ML VIAL IV ONE (10:00)
[2019-08-17] MEDS ORDERED: DILTIAZEM HCL 5MG/ML 5ML VIAL IV ONE ×2 (10:00)
[2019-08-17 10:09] LABS: CHLORIDE 109 mEq/L (98-107)
[2019-08-17] MEDS ORDERED: DILTIAZEM HCL 125 MG in DEXT 5% WATER 100 ML IV ONE (10:15)
[2019-08-17 11:20] VITALS: BP 118/70
== END 2019-08-17 12:50 ==
LOC: ER 09:23
DX: I48.91 Unspecified atrial fibrillation (principal); R07.89 Other chest pain; Z91.14 Patient's other noncompliance with medication regimen; I11.0 Hypertensive heart disease with heart failure; I50.9 Heart failure, unspecified; J44.9 Chronic obstructive pulmonary disease, unspecified; Z86.73 Personal history of transient ischemic attack (TIA), and cerebral infarction without residual deficits; I25.2 Old myocardial infarction; F17.290 Nicotine dependence, other tobacco product, uncomplicated; Z79.899 Other long term (current) drug therapy; Z88.0 Allergy status to penicillin; Z88.8 Allergy status to other drugs, medicaments and biological substances
CPT/HCPCS: 36415; 71045; 80053; 83880; 84484; 85025; 93005; 96374; 96375; 99291; J1940; J3490; J7060

== ENCOUNTER 2022-05-07 14:08 | Inpatient (IN) | payer MEDICAID, OTHER ==
[~2022-05-07] VITALS: Ht 180.3 cm; Wt 138.8 kg
[2022-05-07 15:59] LABS: BASOPHILS % 0.8 % (0.0-2.0); EOSINOPHILS % 1.7 % (0.0-5.0); HEMATOCRIT. 51.5 % (42.0-52.0); LYMPHOCYTES % 23.7 % (20.0-50.0); MEAN CORPUSCULAR HEMOGLOBIN 29.7 pg (28.0-32.0); MEAN CORPUSCULAR VOLUME 89.7 fL (80.0-94.0); MEAN PLATELET VOLUME 10.1 fl (7.4-10.4); MONOCYTES % 6.6 % (2.0-8.0); NEUTROPHILS % 67.2 % (40.0-76.0); PLATELET 154 x1000/uL (130-400); RED BLOOD CELL COUNT 5.74 mill/uL (4.7-6.1)
[2022-05-07] MEDS ORDERED: PANTOPRAZOLE SODIUM 40 MG/VIAL IV ONE (16:00)
[2022-05-07 16:13] LABS: CHLORIDE 112 mEq/L (98-107)
[2022-05-07] MEDS ORDERED: ONDANSETRON HCL 4MG/2ML INJ IV PRN (16:30)
[2022-05-07] MEDS ORDERED: GUAIFENESIN 200MG/10ML SUGAR FREE UDC PO PRN (16:30)
[2022-05-07] MEDS ORDERED: IPRATROPIUM/ALBUTEROL 0.5-3(2.5)MG/3ML NEB HHN PRN (16:30)
[2022-05-07] MEDS ORDERED: MAGNESIUM/ALUMINUM HYDROXIDE/SIMETHICONE 30ML UDC PO PRN (16:30)
[2022-05-07] MEDS ORDERED: ACETAMINOPHEN 325MG TABLET PO PRN (16:30)
[2022-05-07] MEDS ORDERED: DOCUSATE SODIUM 100MG CAPSULE PO PRN (16:30)
[2022-05-07 18:03] LABS: *AMPHETAMINES SCREEN URINE NEGATIVE (NEGATIVE); *BARBITURATES SCREEN URINE NEGATIVE (NEGATIVE); *BENZODIAZEPINES SCREEN URINE NEGATIVE (NEGATIVE); *COCAINE SCREEN URINE NEGATIVE (NEGATIVE); CANNABINOID URINE SCREEN PRESUMTIVE POSITIVE (NEGATIVE); METHADONE URINE SCREEN NEGATIVE (NEGATIVE); OPIATES URINE SCREEN NEGATIVE (NEGATIVE); PHENCYCLIDINE URINE SCREEN NEGATIVE (NEGATIVE)
[2022-05-07] MEDS: FUROSEMIDE 20MG TABLET PO SCH (19:16)
[2022-05-07] MEDS: AMLODIPINE 5MG TABLET PO SCH (19:16)
[2022-05-07] MEDS: CARVEDILOL 6.25 MG TABLET PO SCH (19:16)
[2022-05-07 20:08] LABS: D-DIMER < 0.19 mg/L FEU (<0.50)
[2022-05-07] MEDS: ATORVASTATIN CALCIUM 20MG TABLET PO SCH (22:09)
[2022-05-07 22:38] LABS: CREATINE KINASE MB FRACTION 1.7 ng/mL (0.5-3.6)
[2022-05-08 01:58] VITALS: BP 149/100
[2022-05-08 08:00] VITALS: BP 162/101
[2022-05-08] MEDS: CARVEDILOL 6.25 MG TABLET PO SCH ×2 (08:01→20:53)
[2022-05-08] MEDS: FUROSEMIDE 20MG TABLET PO SCH (08:01)
[2022-05-08] MEDS: CLONIDINE 0.1MG TABLET PO PRN (08:02)
[2022-05-08] MEDS: AMLODIPINE 5MG TABLET PO SCH (08:06)
[2022-05-08] MEDS: PANTOPRAZOLE SODIUM 40 MG/VIAL IV SCH (08:06)
[2022-05-08 12:15] VITALS: BP 132/92
[2022-05-08 12:40] LABS: HEMOGLOBIN 16.6 g/dL (14.0-18.0); MEAN CORPUSCULAR HEMOGLOBIN 30.7 pg (28.0-32.0); MEAN CORPUSCULAR VOLUME 90.7 fL (80.0-94.0); PLATELET 138 x1000/uL (130-400); RED CELL DISTRIBUTION WIDTH 13.8 % (11.6-14.6)
[2022-05-08 13:07] LABS: CHLORIDE 108 mEq/L (98-107)
[2022-05-08 16:15] VITALS: BP 159/92
[2022-05-08] MEDS: SUCRALFATE 1 G/10 ML UDC PO SCH ×2 (17:11→20:52)
[2022-05-08 20:00] VITALS: BP 132/70
[2022-05-08] MEDS: ATORVASTATIN CALCIUM 20MG TABLET PO SCH (20:53)
[2022-05-09] VITALS (8 sets, daily range): BP systolic 107–180; BP diastolic 57–108
[2022-05-09] MEDS: SUCRALFATE 1 G/10 ML UDC PO SCH ×4 (06:44→20:32)
[2022-05-09] MEDS: FUROSEMIDE 20MG TABLET PO SCH (08:06)
[2022-05-09] MEDS: CLONIDINE 0.1MG TABLET PO PRN (08:07)
[2022-05-09] MEDS: PANTOPRAZOLE SODIUM 40 MG/VIAL IV SCH (08:08)
[2022-05-09] MEDS: CARVEDILOL 6.25 MG TABLET PO SCH ×2 (08:08→20:31)
[2022-05-09] MEDS: AMLODIPINE 5MG TABLET PO SCH (08:09)
[2022-05-09 08:31] LABS: BASOPHILS % 0.7 % (0.0-2.0); EOSINOPHILS % 3.4 % (0.0-5.0); HEMATOCRIT. 51.7 % (42.0-52.0); HEMOGLOBIN. 17.1 g/dL (14.0-18.0); MEAN CORPUSCULAR HEMOGLOBIN 29.8 pg (28.0-32.0); MEAN CORPUSCULAR VOLUME 89.9 fL (80.0-94.0); NEUTROPHILS % 59.9 % (40.0-76.0); PLATELET 139 x1000/uL (130-400); RED BLOOD CELL COUNT 5.75 mill/uL (4.7-6.1); RED CELL DISTRIBUTION WIDTH 13.8 % (11.6-14.6)
[2022-05-09 08:34] LABS: PROTHROMBIN TIME 10.9 sec (9.6-11.0)
[2022-05-09 09:00] LABS: CHLORIDE 109 mEq/L (98-107)
[2022-05-09 09:17] LABS: TOTAL IRON BINDING CAPACITY 356 ug/dL (250-450)
[2022-05-09 09:54] LABS: VITAMIN B12 SERUM 486 pg/mL (211-911)
[2022-05-09 10:34] LABS: FOLIC ACID (FOLATE) SERUM > 20.00 ng/mL (>5.38)
[2022-05-09] MEDS ORDERED: BISACODYL 5MG TABLET PO PRN (12:15)
[2022-05-09 13:01] LABS: FERRITIN 201 ng/mL (22-322)
[2022-05-09] MEDS: ZOLPIDEM TARTRATE 5MG TABLET PO PRN (20:31)
[2022-05-09] MEDS: ATORVASTATIN CALCIUM 20MG TABLET PO SCH (20:31)
[2022-05-09] MEDS ORDERED: SENNOSIDES/DOCUSATE SOD 8.6/50MG TABLET PO PRN (21:00)
[2022-05-10] VITALS: BP 141/97
[2022-05-10 04:00] VITALS: BP 143/95
[2022-05-10 04:21] LABS: CLARITY URINE CLEAR (CLEAR); COLOR URINE YELLOW (YELLOW); KETONES URINE NEGATIVE (NEGATIVE); LEUKOCYTE ESTERASE URINE NEGATIVE (NEGATIVE); NITRITE URINE NEGATIVE (NEGATIVE); OCCULT BLOOD URINE NEGATIVE (NEGATIVE); PROTEIN URINE NEGATIVE (NEGATIVE); SPECIFIC GRAVITY URINE 1.018 (1.005-1.030); UROBILINOGEN URINE 0.2 E.U./dL (0.2-1.0)
[2022-05-10 05:00] LABS: *AMPHETAMINES SCREEN URINE NEGATIVE (NEGATIVE); *BARBITURATES SCREEN URINE NEGATIVE (NEGATIVE); *BENZODIAZEPINES SCREEN URINE NEGATIVE (NEGATIVE); *COCAINE SCREEN URINE NEGATIVE (NEGATIVE); CANNABINOID URINE SCREEN PRESUMTIVE POSITIVE (NEGATIVE); METHADONE URINE SCREEN NEGATIVE (NEGATIVE); OPIATES URINE SCREEN NEGATIVE (NEGATIVE); PHENCYCLIDINE URINE SCREEN NEGATIVE (NEGATIVE)
[2022-05-10] MEDS: SUCRALFATE 1 G/10 ML UDC PO SCH ×4 (07:20→20:49)
[2022-05-10 07:28] LABS: BASOPHILS % 0.7 % (0.0-2.0); EOSINOPHILS % 3.3 % (0.0-5.0); HEMATOCRIT. 50.1 % (42.0-52.0); HEMOGLOBIN. 16.8 g/dL (14.0-18.0); MEAN CORPUSCULAR HEMOGLOBIN 30.2 pg (28.0-32.0); MEAN CORPUSCULAR VOLUME 89.9 fL (80.0-94.0); MEAN PLATELET VOLUME 10.1 fl (7.4-10.4); MONOCYTES % 7.8 % (2.0-8.0); NEUTROPHILS % 60.2 % (40.0-76.0); PLATELET 139 x1000/uL (130-400); RED BLOOD CELL COUNT 5.57 mill/uL (4.7-6.1); RED CELL DISTRIBUTION WIDTH 13.6 % (11.6-14.6)
[2022-05-10 07:44] LABS: PROTHROMBIN TIME 10.8 sec (9.6-11.0)
[2022-05-10 08:00] VITALS: BP 126/77
[2022-05-10] MEDS: POLYETHYLENE GLYCOL 3350 (17GM) 1 DOSE PACK PO SCH (08:03)
[2022-05-10] MEDS: AMLODIPINE 5MG TABLET PO SCH (08:56)
[2022-05-10] MEDS: FUROSEMIDE 20MG TABLET PO SCH (08:56)
[2022-05-10] MEDS: CARVEDILOL 6.25 MG TABLET PO SCH ×2 (08:56→20:50)
[2022-05-10 08:57] LABS: CHLORIDE 108 mEq/L (98-107)
[2022-05-10] MEDS: PANTOPRAZOLE SODIUM 40 MG/VIAL IV SCH (08:58)
[2022-05-10 12:00] VITALS: BP 141/94
[2022-05-10 16:00] VITALS: BP 155/91
[2022-05-10 20:00] VITALS: BP 136/65
[2022-05-10] MEDS: ATORVASTATIN CALCIUM 20MG TABLET PO SCH (20:49)
[2022-05-10] MEDS: ZOLPIDEM TARTRATE 5MG TABLET PO PRN (20:50)
[2022-05-11] VITALS: BP 168/66
[2022-05-11 04:00] VITALS: BP 143/86
[2022-05-11 04:24] LABS: BASOPHILS % 0.8 % (0.0-2.0); EOSINOPHILS % 4.1 % (0.0-5.0); HEMATOCRIT. 49.9 % (42.0-52.0); HEMOGLOBIN. 16.5 g/dL (14.0-18.0); LYMPHOCYTES % 33.9 % (20.0-50.0); MEAN CORPUSCULAR VOLUME 90.7 fL (80.0-94.0); MEAN PLATELET VOLUME 10.5 fl (7.4-10.4); MONOCYTES % 7.8 % (2.0-8.0); NEUTROPHILS % 53.4 % (40.0-76.0); PLATELET 156 x1000/uL (130-400); RED CELL DISTRIBUTION WIDTH 14.1 % (11.6-14.6)
[2022-05-11 06:18] LABS: CHLORIDE 108 mEq/L (98-107)
[2022-05-11] MEDS: SUCRALFATE 1 G/10 ML UDC PO SCH ×2 (06:45→12:20)
[2022-05-11 08:00] VITALS: BP 169/92
[2022-05-11] MEDS: PANTOPRAZOLE SODIUM 40 MG/VIAL IV SCH (08:57)
[2022-05-11] MEDS: CLONIDINE 0.1MG TABLET PO PRN (08:58)
[2022-05-11] MEDS: FUROSEMIDE 20MG TABLET PO SCH (09:00)
[2022-05-11] MEDS: CARVEDILOL 6.25 MG TABLET PO SCH (09:00)
[2022-05-11] MEDS: POLYETHYLENE GLYCOL 3350 (17GM) 1 DOSE PACK PO SCH (09:00)
[2022-05-11] MEDS: AMLODIPINE 5MG TABLET PO SCH (09:00)
[2022-05-11] MEDS ORDERED: LIDOCAINE HCL 1% 20ML VIAL (Pyxis) INJ ONE (09:25)
[2022-05-11] MEDS ORDERED: MIDAZOLAM HCL 2 MG/2 ML VIAL ONE (09:26)
[2022-05-11] MEDS ORDERED: PROPOFOL 200MG/20ML VIAL IV ONE ×2 (09:26→09:27)
[2022-05-11] MEDS ORDERED: FENTANYL CITRATE/PF 50MCG/ML 2ML VIAL ONE (09:26)
[2022-05-11] MEDS ORDERED: SIMETHICONE 40 MG/0.6 ML 15ML ONE (12:04)
[2022-05-11 15:11] VITALS: BP 111/70
[2022-05-11] MEDS ORDERED: OMEP20CA14 PO (16:23)
== END 2022-05-11 16:59 | disposition home or self-care (01) | DRG 241 ==
LOC: ER 14:08 → 6EST 18:29 → EDBEDREQ 18:39 → ENRESERV 19:29 → ER 22:11
PROVIDERS: ADMIT Internal Medicine; ATTEND Internal Medicine
PROC: 0DB78ZX Excision of Stomach, Pylorus, Via Natural or Artificial Opening Endoscopic, Diagnostic (ICD-10-PCS; principal; 2022-05-11)
DX: K29.01 Acute gastritis with bleeding (principal); I11.0 Hypertensive heart disease with heart failure; I50.22 Chronic systolic (congestive) heart failure; D64.9 Anemia, unspecified; E78.00 Pure hypercholesterolemia, unspecified; I48.0 Paroxysmal atrial fibrillation; G43.909 Migraine, unspecified, not intractable, without status migrainosus; Z20.822 Contact with and (suspected) exposure to COVID-19; K59.00 Constipation, unspecified; F17.210 Nicotine dependence, cigarettes, uncomplicated; I25.10 Atherosclerotic heart disease of native coronary artery without angina pectoris; K21.9 Gastro-esophageal reflux disease without esophagitis; J43.9 Emphysema, unspecified; E78.5 Hyperlipidemia, unspecified; Z79.82 Long term (current) use of aspirin; Z86.73 Personal history of transient ischemic attack (TIA), and cerebral infarction without residual deficits; Z95.5 Presence of coronary angioplasty implant and graft; I25.2 Old myocardial infarction; Z88.0 Allergy status to penicillin; Z88.8 Allergy status to other drugs, medicaments and biological substances
CPT/HCPCS: 36415; 71045; 74018; 74176; 80048; 80053; 80305; 81003; 82550; 82553; 82607; 82728; 82746; 83036; 83540; 83550; 83735; 83880; 84100; 84153; 84484; 85025; 85027; 85044; 85379; 86850; 86900; 87426; 88305; 93005; 93306; 99285; C9113; J2250; J2704; J3010; J3490; G0103